=== PATIENT | female | born 1990 | race Caucasian/White ===

== ENCOUNTER → 2021-08-02 | Outpatient (CLI) | payer BC | LOC: RAD 09:19 | DX: U07.1 COVID-19 (principal) ==

== ENCOUNTER → 2021-08-11 | Outpatient (CLI) | payer BC | LOC: RAD 08:55 | DX: R06.00 Dyspnea, unspecified (principal); Z98.82 Breast implant status | CPT/HCPCS: Q9967 ==

== ENCOUNTER → 2021-08-26 | Outpatient (CLI) | payer BC | LOC: CARDLAB 08:18 → CARDREHAB 09:57 → CARDLAB 12:12 | DX: R07.9 Chest pain, unspecified (principal) | CPT/HCPCS: A9500 ==

== ENCOUNTER → 2023-06-07 | Outpatient (CLI) | payer BC ==
[2023-06-07 14:46] LABS: BASO # 0.04 K/mm3 (0.02-0.10); EOS # 0.34 K/mm3 (0.04-0.40); EOS % 3.6 % (1.0-5.0); HEMOGLOBIN 14.7 g/dL (12.5-16.0); MEAN CELL VOLUME 93 fl (78-100); MEAN CORPUSCULAR HEMOGLOBIN 31 pg (27-31); MEAN CORPUSCULAR HGB CONC 33 g/dL (33-37); MEAN PLATELET VOLUME 9.9 fl (7.4-10.4); MONO # 0.49 K/mm3 (0.20-0.80); NEU # 6.05 K/mm3 (1.40-6.50); PLATELET COUNT 318 K/mm3 (130-400); RED BLOOD COUNT 4.72 M/mm3 (4.10-5.30); RED CELL DISTRIBUTION WIDTH 11.3 % (11.5-14.5); WHITE BLOOD COUNT 9.4 K/mm3 (4.8-10.8)
[2023-06-07 14:55] LABS: ALBUMIN 4.6 g/dL (3.5-5.0); POTASSIUM 3.4 mmol/L (3.5-5.1)
[2023-06-07 14:57] LABS: CALCIUM 9.9 mg/dL (8.3-10.5)
[2023-06-07 14:58] LABS: TOTAL PROTEIN 7.7 g/dL (6.4-8.3)
[2023-06-07 15:00] LABS: TOTAL BILIRUBIN 0.3 mg/dL (0.2-1.2)
[2023-06-07 15:08] LABS: D-DIMER 0.17 mg/L FEU (0.15-0.50)
[2023-06-08 23:00] LABS: FOLATE (FOLIC ACID) 17.7 ng/mL (2.0-20.0)
== END ==
LOC: LAB 14:24
PROVIDERS: Nurse Practitioner
DX: J01.90 Acute sinusitis, unspecified (principal); H65.03 Acute serous otitis media, bilateral; G47.09 Other insomnia; R71.8 Other abnormality of red blood cells; R53.83 Other fatigue

== ENCOUNTER → 2023-06-13 | Outpatient (CLI) | payer BC | LOC: LAB 14:03 | DX: H65.03 Acute serous otitis media, bilateral (principal); R53.83 Other fatigue ==

== ENCOUNTER → 2023-07-07 | Outpatient (CLI) | payer BC | LOC: RAD 07-04 17:15 → VAS 07:07 → RAD 07:30 | DX: R00.0 Tachycardia, unspecified (principal) ==

== ENCOUNTER → 2023-07-16 | Outpatient (CLI) | payer BC | LOC: RAD 12:55 | DX: R59.0 Localized enlarged lymph nodes (principal) ==

== ENCOUNTER → 2023-11-21 | Outpatient (CLI) | payer BC | LOC: LAB 13:56 | DX: B34.9 Viral infection, unspecified (principal) ==

== ENCOUNTER → 2024-02-01 | Outpatient (CLI) | payer BC ==
[2024-02-01 07:57] LABS: URINE WBC 0 /hpf (0-3)
[2024-02-01 08:13] LABS: BASO # 0.05 K/mm3 (0.02-0.10); EOS # 0.13 K/mm3 (0.04-0.40); EOS % 2.3 % (1.0-5.0); HEMATOCRIT 42.7 % (37.0-47.0); HEMOGLOBIN 13.8 g/dL (12.5-16.0); LYMPH# 1.92 K/mm3 (1.50-4.00); MEAN CELL VOLUME 95 fl (78-100); MEAN CORPUSCULAR HEMOGLOBIN 31 pg (27-31); MEAN CORPUSCULAR HGB CONC 32 g/dL (33-37); MEAN PLATELET VOLUME 9.8 fl (7.4-10.4); MONO # 0.28 K/mm3 (0.20-0.80); NEU # 3.18 K/mm3 (1.40-6.50); PLATELET COUNT 332 K/mm3 (130-400); RED BLOOD COUNT 4.51 M/mm3 (4.10-5.30); RED CELL DISTRIBUTION WIDTH 11.5 % (11.5-14.5); WHITE BLOOD COUNT 5.6 K/mm3 (4.8-10.8)
[2024-02-01 08:27] LABS: ALBUMIN 4.7 g/dL (3.5-5.0)
[2024-02-01 08:29] LABS: CALCIUM 9.7 mg/dL (8.3-10.5)
[2024-02-01 08:30] LABS: TOTAL PROTEIN 7.5 g/dL (6.4-8.3)
[2024-02-01 08:32] LABS: TOTAL BILIRUBIN 0.6 mg/dL (0.2-1.2)
[2024-02-01 08:37] LABS: MAGNESIUM 1.98 mg/dL (1.60-2.60)
[2024-02-01 09:00] LABS: URINE APPEARANCE CLEAR (CLEAR); URINE BILIRUBIN NEGATIVE (NEGATIVE); URINE BLOOD NEGATIVE (NEGATIVE); URINE COLOR YELLOW (YELLOW); URINE GLUCOSE NEGATIVE (NEGATIVE); URINE KETONE NEGATIVE (NEGATIVE); URINE LEUKOCYTE ESTERASE NEGATIVE (NEGATIVE); URINE NITRATE NEGATIVE (NEGATIVE); URINE PROTEIN(semi-quant) NEGATIVE (NEGATIVE)
[2024-03-11 13:03] LABS: CORTISOL, AM (0800) 17.4; PROGESTERONE 0.1
[2024-03-11 13:04] LABS: INSULIN 9.8; LUTENIZING HORMONE 7.4
[2024-03-11 13:08] LABS: TESTOSTERONE 19
[2024-03-11 13:09] LABS: ESTRADIOL 48.9
[2024-03-12 16:03] LABS: ADRENOCORTICOTROPIC HORMONE 9.7
== END ==
LOC: LAB 07:50
PROVIDERS: Nurse Practitioner
DX: R25.2 Cramp and spasm (principal); R63.4 Abnormal weight loss; M25.50 Pain in unspecified joint; R06.09 Other forms of dyspnea; R82.90 Unspecified abnormal findings in urine; R53.83 Other fatigue

== ENCOUNTER 2024-02-12 15:09 | Emergency (ER) | payer BC ==
[~2024-02-12 15:09] MED LIST: Albuterol/Ipratropium 3 MG-0.5 MG/3 ML Neb Soln IH ONE; Budesonide Neb Soln 0.5 MG/2 ML AMP IH ONE; Iohexol 350 - 100 ML VIAL IV ONE; NS 60 ML IV ONE
[2024-03-18 05:32] LABS: ALBUMIN 4.6 g/dL (3.5-5.0); ALT/SGPT 28 U/L (0-55); AST-SGOT 21 U/L (5-34); CALCIUM 9.8 mg/dL (8.3-10.5); CARBON DIOXIDE 21 mmol/L (22-29); GLUCOSE 135 mg/dL (65-105); SODIUM 139 mmol/L (136-145); TOTAL BILIRUBIN 0.4 mg/dL (0.2-1.2); TOTAL PROTEIN 7.5 g/dL (6.4-8.3); TROPONIN-I < 0.030 ng/mL (0.00-0.033)
[2024-03-18 05:34] LABS: HEMATOCRIT 41.3 % (37.0-47.0); HEMOGLOBIN 13.9 g/dL (12.5-16.0); MEAN CELL VOLUME 92 fl (78-100); MEAN CORPUSCULAR HEMOGLOBIN 31 pg (27-31); MEAN CORPUSCULAR HGB CONC 34 g/dL (33-37); MEAN PLATELET VOLUME 9.9 fl (7.4-10.4); PLATELET COUNT 321 K/mm3 (130-400); RED BLOOD COUNT 4.48 M/mm3 (4.10-5.30); RED CELL DISTRIBUTION WIDTH 11.3 % (11.5-14.5); WHITE BLOOD COUNT 10.2 K/mm3 (4.8-10.8)
[2024-03-18 05:35] LABS: LYMPHOCYTE 7 % (20-51); NEUTROPHILS 93 % (42-75)
[2024-03-18 05:36] LABS: D-DIMER 0.27 mg/L FEU (0.15-0.50); URINE APPEARANCE CLEAR (CLEAR); URINE COLOR LIGHT YELLOW (YELLOW); URINE PROTEIN(semi-quant) NEGATIVE (NEGATIVE)
[2024-03-18 05:37] LABS: URINE BILIRUBIN NEGATIVE (NEGATIVE); URINE BLOOD NEGATIVE (NEGATIVE); URINE GLUCOSE NEGATIVE (NEGATIVE); URINE KETONE 1+ (NEGATIVE); URINE LEUKOCYTE ESTERASE NEGATIVE (NEGATIVE); URINE NITRATE NEGATIVE (NEGATIVE); URINE WBC 0-1 /hpf (0-3)
== END 2024-02-12 17:54 | disposition home or self-care (01) ==
LOC: ED 15:09
PROVIDERS: Nurse Practitioner Family
DX: R07.9 Chest pain, unspecified (principal); F41.9 Anxiety disorder, unspecified; F32.A Depression, unspecified
CPT/HCPCS: J7120; Q9967

== ENCOUNTER → 2024-02-15 | Outpatient (CLI) | payer BC | LOC: RAD 11:55 | DX: R51.9 Headache, unspecified (principal); M25.50 Pain in unspecified joint; R63.4 Abnormal weight loss; R53.83 Other fatigue ==

== ENCOUNTER → 2024-07-03 | Outpatient (CLI) | payer BC ==
[2024-07-03 23:02] LABS: T3 FREE 2.9 pg/mL (1.7-3.7)
== END ==
LOC: LAB 12:51
PROVIDERS: Nurse Practitioner
DX: I47.11 Inappropriate sinus tachycardia, so stated (principal)